=== PATIENT | female | born 1975 | race Caucasian/White ===

== ENCOUNTER 2017-03-20 14:22 | Emergency (ER) | payer OTHER ==
[2017-03-20] MEDS ORDERED: NS 1,000 ML IV ONE ×2 (15:16→15:23)
[2017-03-20] MEDS ORDERED: ONDANSETRON 4 MG/2 ML VIAL IVP ONE (15:23)
[2017-03-20] MEDS ORDERED: ONDANSETRON 4 MG/2 ML VIAL ONE (15:25)
--- NOTE | 2017-03-20 15:29 | EDPHY ---
H & P Stated Complaint: R flank/mid bk pain after attempt at uro procedure 03/19 Anjali, bladder pain Time Seen by Provider: 03/20/17 15:03 HPI/ROS: CHIEF COMPLAINT: Flank pain, hematuria HISTORY OF PRESENT ILLNESS: Patient complains of severe flank pain and bladder spasms. This started while having a urodynamic study performed. She was unable to tolerate the remainder procedure and even lost consciousness briefly due to the pain. Since then she has had colicky right flank and suprapubic pain. She has had bladder spasm. The symptoms have been moderate to severe. They have made it too difficult for her to even work. She has been nauseated but no vomiting. No fever or chills. She has had hematuria. Today the flank pain is the more severe of the area. It is worse with palpation or movement. It has improved since time of arrival but not resolved. The urodynamic study was being performed due to upcoming hysterectomy with bladder sling, repair of rectocele, repair of cystocele. She has no other associated complaints or modifying factors at this time. PREVIOUS ABDOMINAL SURGERIES/DIAGNOSES: Urodynamic study on at [facility] REVIEW OF SYSTEMS: Ten systems reviewed and are negative unless otherwise noted in the HPI EXAMINATION: General Appearance: Alert, no distress Head: normocephalic, atraumatic Eyes: Pupils equal and round, no conjunctival pallor or injection ENT, Mouth: Mucous membranes moist Neck: Normal inspection, supple, non-tender Respiratory: Lungs are clear to auscultation. No wheezing, rhonchi or crackles. Cardiovascular: Regular rate and rhythm. No murmur. Pulses intact distally. Gastrointestinal: Abdomen is soft and nontender. No tympany. No rigidity. Mild right-sided CVA tenderness. Non-acute abdomen. Neurological: A&O, nonfocal, GCS 15. Skin: Warm and dry, no rash Extremities: Nontender, no pedal edema Psychiatric: Mood and affect normal DIFFERENTIAL DIAGNOSES: Including but not limited to renal colic, renal lithiasis, ureteral lithiasis, bladder calculus, postoperative complication, urinary tract infection MDM: 3:27 p.m. Right flank pain, bladder spasms, hematuria after recent urodynamic study. She is in no acute distress at this time. Abdominal exam is benign. Laboratory studies, IV fluid, pain medication and CT scan have been ordered. 5:40 p.m. Notified by radiologist Dr. Perez. No evidence of renal lithiasis or ureterolithiasis. There are phleboliths noted in the pelvis. There is incidental note of hepatomegaly. I discussed the findings with the patient. She continues to have bladder spasms but no flank pain. I have ordered discharge pain and p. o. [place] as she is declined IV pain medication. She is resting comfortably with normal vital signs. Her laboratory studies are all within normal limits, with exception of microscopic hematuria with positive nitrite. I discussed the case with Dr. Aguilar and he will evaluate the patient. 5:50 p.m. 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 Sacnhez. I have left a voice message on her cell phone. The patient has also been in contact with. We offered to observe her here for further pain control, the patient is comfortable with being discharged home. She is able to contact her physician as well. She will be discharged home with ongoing prescription for oxybutynin, [place] and instructions to follow up with her uro testing projects administrator. She is to return to ER for worsening symptoms. She is comfortable with this plan and discharged home stable condition. ED Precautions: Worsening pain. Fever. Bloody stools. Bloody emesis. Constipation or diarrhea. SUPERVISION: Patient was evaluated in conjunction with the supervising physician. Please see their note for details. Source: Patient, Family Exam Limitations: No limitations - Personal History LMP (Females 10-55): Over 28 Days Ago Current Tetanus/Diphtheria Vaccine: Unsure Current Tetanus Diphtheria and Acellular Pertussis (TDAP): Unsure - Medical/Surgical History Hx Asthma: No Hx Chronic Respiratory Disease: No Hx Diabetes: No Hx Cardiac Disease: No Hx Renal Disease: No Hx Cirrhosis: No Hx Alcoholism: No Hx HIV/AIDS: No Hx Splenectomy or Spleen Trauma: No Other PMH: HYPOTHYROID - Social History Smoking Status: Never smoked Constitutional: Initial Vital Signs Temperature (C) 97.3 F 03/20/17 14:48 Heart Rate 73 03/20/17 14:48 Respiratory Rate 16 03/20/17 14:48 Blood Pressure 131/67 H 03/20/17 14:48 O2 Sat (%) 95 03/20/17 14:48 O2 Delivery Mode Room Air Allergies/Adverse Reactions: No Known Allergies Allergy (Unverified 08/01/15 21:53) Home Medications: Medication Instructions Recorded LEVOTHYROXINE SODIUM [Tirosint 88 88 mcg PO DAILY 08/02/15 mcg] Omeprazole/Sodium Bicarbonate 20 each PO DAILY 08/02/15 [Zegerid 20 mg Capsule] Sertraline HCl [Zoloft 25mg (*)] 75 mg PO DAILY 08/02/15 Ciprofloxacin 03/20/17 Hydrocodone/APAP 5/325 [[place] 1 - 2 tab PO Q4H PRN #14 tab 03/20/17 5/325 (*)] Oxybutynin Chloride 5 mg PO AD PRN #20 tablet 03/20/17 Vesicare 03/20/17 Medical Decision Making - Data Points Laboratory Results: Laboratory Results 03/20/17 15:15 03/20/17 15:15 03/20/17 03/20/17 03/20/17 15:15 15:15 15:15 WBC 5.18 10^3/uL 10^3/uL (3.80-9.50) RBC 4.99 10^6/uL 10^6/uL (4.18-5.33) Hgb 14.3 g/dL g/dL (12.6-16.3) Hct 44.0 % % (38.0-47.0) MCV 88.2 fL fL (81.5-99.8) MCH 28.7 pg pg (27.9-34.1) MCHC 32.5 g/dL g/dL (32.4-36.7) RDW 12.5 % % (11.5-15.2) Plt Count 214 10^3/uL 10^3/uL (150-400) MPV 9.4 fL fL (8.7-11.7) Neut % (Auto) 45.6 % % (39.3-74.2) Lymph % (Auto) 38.2 % % (15.0-45.0) [place] % (Auto) 12.9 % % (4.5-13.0) Eos % (Auto) 2.5 % % (0.6-7.6) Baso % (Auto) 0.6 % % (0.3-1.7) Nucleat RBC Rel Count 0.0 % % (0.0-0.2) Absolute Neuts (auto) 2.36 10^3/uL 10^3/uL (1.70-6.50) Absolute Lymphs (auto) 1.98 10^3/uL 10^3/uL (1.00-3.00) Absolute Monos (auto) 0.67 10^3/uL 10^3/uL (0.30-0.80) Absolute Eos (auto) 0.13 10^3/uL 10^3/uL (0.03-0.40) Absolute Basos (auto) 0.03 10^3/uL 10^3/uL (0.02-0.10) Absolute Nucleated RBC 0.00 10^3/uL 10^3/uL (0-0.01) Immature Gran % 0.2 % % (0.0-1.1) Immature Gran # 0.01 10^3/uL 10^3/uL (0.00-0.10) Sodium 142 mEq/L mEq/L (134-144) Potassium 4.3 mEq/L mEq/L (3.5-5.2) Chloride 103 mEq/L mEq/L (97-110) Carbon Dioxide 26 mEq/l mEq/l (22-31) Anion Gap 13 mEq/L mEq/L (8-16) BUN 14 mg/dL mg/dL (7-23) Creatinine 0.8 mg/dL mg/dL (0.6-1.0) Estimated GFR > 60 Glucose 89 mg/dL mg/dL (70-100) Calcium 9.6 mg/dL mg/dL (8.5-10.4) Total Bilirubin 0.4 mg/dL mg/dL (0.1-1.4) Conjugated Bilirubin 0.2 mg/dL mg/dL (0.0-0.5) Unconjugated Bilirubin 0.2 mg/dL mg/dL (0.0-1.1) AST 23 IU/L IU/L (14-46) ALT 32 IU/L IU/L (9-52) Alkaline Phosphatase 38 IU/L IU/L (38-126) Total Protein 8.1 g/dL g/dL (6.3-8.2) Albumin 4.8 g/dL g/dL (3.5-5.0) Lipase 176.0 IU/L IU/L (23-300) Beta HCG, Qual NEGATIVE Urine Color Urine Appearance Urine pH Ur Specific [place] Urine Protein Urine Ketones Urine Blood Urine Nitrate Urine Bilirubin Urine Urobilinogen Ur Leukocyte Esterase Urine RBC Urine WBC Ur Epithelial Cells Urine Bacteria Urine Mucus Urine Glucose 03/20/17 15:10 WBC RBC Hgb Hct MCV MCH MCHC RDW Plt Count MPV Neut % (Auto) Lymph % (Auto) [place] % (Auto) Eos % (Auto) Baso % (Auto) Nucleat RBC Rel Count Absolute Neuts (auto) Absolute Lymphs (auto) Absolute Monos (auto) Absolute Eos (auto) Absolute Basos (auto) Absolute Nucleated RBC Immature Gran % Immature Gran # Sodium Potassium Chloride Carbon Dioxide Anion Gap BUN Creatinine Estimated GFR Glucose Calcium Total Bilirubin Conjugated Bilirubin Unconjugated Bilirubin AST ALT Alkaline Phosphatase Total Protein Albumin Lipase Beta HCG, Qual Urine Color VITALY Urine Appearance CLEAR Urine pH 7.0 (5.0-7.5) Ur Specific [place] 1.005 (1.002-1.030) Urine Protein NEGATIVE (NEGATIVE) Urine Ketones NEGATIVE (NEGATIVE) Urine Blood 3+ H (NEGATIVE) Urine Nitrate POSITIVE H (NEGATIVE) Urine Bilirubin NEGATIVE (NEGATIVE) Urine Urobilinogen 2.0 EU H EU (0.2-1.0) Ur Leukocyte Esterase NEGATIVE (NEGATIVE) Urine RBC 50-182 /hpf H /hpf (0-3) Urine WBC 1-3 /hpf /hpf (0-3) Ur Epithelial Cells TRACE /lpf /lpf (NONE-1+) Urine Bacteria TRACE /hpf H /hpf (NONE SEEN) Urine Mucus TRACE /lpf /lpf (NONE-1+) Urine Glucose NEGATIVE (NEGATIVE) Medications Given: Discontinued Medications Hydrocodone Bitart/Acetaminophen ([place] 5/325) 1 tab PO EDNOW ONE Stop: 03/20/17 17:35 Last Admin: 03/20/17 17:40 Dose: 1 tab Sodium Chloride (Ns) 1,000 mls @ 0 mls/hr IV ONCE ONE PRN Reason: Wide Open Stop: 03/20/17 15:24 Last Admin: 03/20/17 15:29 Dose: Not Given Sodium Chloride (Ns) 1,000 mls @ 0 mls/hr IV ONCE ONE PRN Reason: Wide Open Stop: 03/20/17 15:17 Last Admin: 03/20/17 15:29 Dose: 1,000 mls Ketorolac Tromethamine (Toradol) 30 mg IVP EDNOW ONE Stop: 03/20/17 16:03 Last Admin: 03/20/17 16:29 Dose: 30 mg Morphine Sulfate (Morphine) 6 mg IVP EDNOW ONE Stop: 03/20/17 15:24 Last Admin: 03/20/17 15:30 Dose: Not Given Ondansetron HCl (Zofran) 4 mg IVP EDNOW ONE Stop: 03/20/17 15:24 Last Admin: 03/20/17 15:30 Dose: Not Given Oxybutynin Chloride (Ditropan) 5 mg PO EDNOW ONE Stop: 03/20/17 17:31 Last Admin: 03/20/17 17:40 Dose: 5 mg Departure - Departure Disposition: Home, Routine, Self-Care Clinical Impression: Acute flank pain, Microscopic hematuria, Phlebolith Condition: Good Instructions: Hematuria (ED), Flank Pain (ED), Hydrocodone/Acetaminophen (By mouth) Additional Instructions: Medications as discussed. Follow up with established urologist. Return to the ER for worsening symptoms Referrals: IOANA ROLLINS [Other] - As per Instructions RITESH SANCHEZ [Non Staff Provider ()] - As per Instructions Prescriptions: Hydrocodone/APAP 5/325 [[place] 5/325 (*)] 1 - 2 tab PO Q4H PRN #14 tab PRN Reason: Pain, Moderate Oxybutynin Chloride 5 mg PO AD PRN #20 tablet PRN Reason: Spasms
[2017-03-20 15:35] LABS: COLOR AMBER; LEUKOCYTE ESTERASE,URINE NEGATIVE (NEGATIVE); NITRITE,URINE POSITIVE (NEGATIVE)
[2017-03-20 15:42] LABS: % IMMATURE GRANULYOCYTES 0.2 % (0.0-1.1); ABSOLUTE IMMATURE GRANULOCYTES 0.01 10^3/uL (0.00-0.10); ADD DIFF? NO; ADD MORPH? NO; ADD SCAN? NO; ATYPICAL LYMPHOCYTE FLAG 0 (0-99); FRAGMENT RBC FLAG 0 (0-99); HEMOGLOBIN 14.3 g/dL (12.6-16.3); LEFT SHIFT FLG 0 (0-99); LIPEMIA HEMOLYSIS FLAG 80 (0-99); MEAN CELL HEMOGLOBIN 28.7 pg (27.9-34.1); MEAN CELL HEMOGLOBIN CONCENTR. 32.5 g/dL (32.4-36.7); MEAN CELL VOLUME 88.2 fL (81.5-99.8); MEAN PLATELET VOLUME 9.4 fL (8.7-11.7); PLATELET CLUMPS FLAG 0 (0-99); PLATELET COUNT 214 10^3/uL (150-400); RED BLOOD CELL COUNT 4.99 10^6/uL (4.18-5.33); RED CELL DISTRIBUTION WIDTH 12.5 % (11.5-15.2)
[2017-03-20 15:50] LABS: BACTERIA TRACE /hpf (NONE SEEN); MUCUS TRACE /lpf (NONE-1+); RBC,URINE 50-182 /hpf (0-3)
[2017-03-20 15:54] LABS: ALANINE AMINOTRANSFERASE 32 IU/L (9-52); ALBUMIN 4.8 g/dL (3.5-5.0); ALKALINE PHOSPHATASE 38 IU/L (38-126); ANION GAP 13 mEq/L (8-16); ASPARTATE AMINOTRANSFERASE 23 IU/L (14-46); BILIRUBIN,TOTAL 0.4 mg/dL (0.1-1.4); BILIRUBIN-CONJUGATED 0.2 mg/dL (0.0-0.5); BILIRUBIN-UNCONJUGATED 0.2 mg/dL (0.0-1.1); CALCIUM 9.6 mg/dL (8.5-10.4); CARBON DIOXIDE 26 mEq/l (22-31); CHLORIDE 103 mEq/L (97-110); CREATININE 0.8 mg/dL (0.6-1.0); GLOMERULAR FILTRATION RATE > 60; GLUCOSE 89 mg/dL (70-100); POTASSIUM 4.3 mEq/L (3.5-5.2); SODIUM 142 mEq/L (134-144); TOTAL PROTEIN 8.1 g/dL (6.3-8.2)
[2017-03-20] MEDS ORDERED: KETOROLAC 30 MG/1 ML SDV IVP ONE (16:02)
[2017-03-20] MEDS ORDERED: OXYBUTYNIN CHLORIDE 5 MG TAB PO ONE (17:30)
[2017-03-20] MEDS ORDERED: HYDROCODONE/APAP 5/325 TAB PO ONE (17:34)
[2017-03-20] MEDS ORDERED: HYDROCOD/APAP 5/325 PREPACK#6 BTL TAKEHOME ONE (17:59)
[2017-03-20 18:07] VITALS: BP 99/61; PULSE 61; RESP 18; TEMP 98.4; O2SAT 95
== END 2017-03-20 18:08 | disposition home or self-care (01) ==
DX: R31.29 Other microscopic hematuria (principal); I87.8 Other specified disorders of veins
CPT/HCPCS: 96374; J1885; J2405